=== PATIENT | female | born 1995 | race Caucasian/White ===

== ENCOUNTER → 2020-07-22 08:09 | Outpatient (CLI) | payer BC, SELFPAY ==
--- NOTE | ~2020-07-22 | US_ITS ---
US abdomen complete EXAMINATION: US Abdomen Complete INDICATION: Abdominal pain. PROCEDURE: Realtime High Resolution abdomen ultrasound. COMPARISON: No prior studies for comparison FINDINGS: Gallbladder within normal limits. No gallstones, pericholecystic fluid, gallbladder wall t hickening or biliary dilatation. Common bile duct measures 3 mm. Liver echotexture within normal limits without focal mass. Pancreas within normal limits. Pancreati c tail is obscured by bowel gas. Spleen is unremarkeable. Renal echotexture is within normal limits bilaterally without hydronephrosis, contour deforming mass. There is a 5 mm echogenic focus in the le ft kidney, possibly nonobstructing stone. Right kidney measures 10.5 cm. Left kidney measures 11.7 cm . Visualized aspects of the aorta and IVC are within normal limits. Portal vein is patent. No sonograph ic Bradford's sign indicated by the technologist. IMPRESSION: 1: Echogenic focus of the left kidney measuring 5 mm, possibly nonobstructing nephrolithiasis. Reviewed, dictated and finalized at location A. S AND BLOW MACHINE TENDER IMPRESSION: 1: Echogenic focus of the left kidney measuring 5 mm, possibly nonobstructing n ephrolithiasis.
== END ==
PROVIDERS: Visit Provider Nurse Practitioner Family
DX: R10.13 Epigastric pain (principal)
CPT/HCPCS: 76700